=== PATIENT | female | born 1965 ===

== ENCOUNTER 2024-09-27 09:00 | Inpatient (IN) | payer OTHER ==
[~2024-09-27] VITALS: Ht 167.6 cm; Wt 124.7 kg
[2024-09-27 10:53] LABS: BASO % 0.8 % (0.1-1.2); EOS # 0.18 (0.04-0.54); EOS % 2.3 % (0.7-7.0); LYMPH # 2.49 (1.18-3.74); LYMPH % 32.3 % (19.3-53.1); MEAN PLATELET VOLUME 11.50 fl (9.4-12.4); MONO # 0.37 (0.24-0.82); MONO % 4.8 % (4.7-12.5); NEUT # 4.60 (1.56-6.13); NEUT % 59.7 % (34.0-71.1); RED CELL DISTRIBUTION WIDTH 13.6 % (11.6-14.4)
[2024-09-27 11:00] LABS: URINE APPEARANCE Clear; URINE BILIRRUBIN Negative (NEGATIVE); URINE BLOOD Negative; URINE COLOR Yellow; URINE GLUCOSE Negative (NEGATIVE); URINE KETONE Negative (NEGATIVE); URINE LEUKOCYTE Negative; URINE NITRATE Negative; URINE PROTEIN Negative (NEGATIVE); URINE UROBILINOGEN 0.2 E.U./dl
[2024-09-27 11:05] LABS: URINE BACTERIA 49.1 uL (0.0-1933); URINE EPITHELIAL CELLS 5.3 uL (0.0-38.8); URINE RBC 9.5 uL (0.0-20.8); URINE WBC 3.9 uL (0.0-23.2)
[2024-09-27 11:14] LABS: ALT/SGPT 24.0 U/L (12-78); AST/SGOT 12.0 U/L (15-37); BILIRUBIN TOTAL 0.53 mg/dL (0.3-1.2); BUN CREA RATIO 16.0 (7.0-25.0); CREATININE SERUM 1.01 mg/dL (0.55-1.02); GFR 56.3; GLOBULINA 4.0 G/DL (2.4-3.5); GLUCOSE FASTING 95.0 mg/dL (65-100); OSMOLALITY SERUM 286.0 MOSM/KG (275-295)
[2024-09-27 11:20] LABS: COVID-19 AG NEGATIVE (NEGATIVE)
[2024-09-27 11:22] LABS: INR 0.97
[2024-09-27 11:27] LABS: URINE CAST 0.00 uL (0.0-1.40)
[2024-09-27 11:30] LABS: RH POSITIVE
[2024-09-27 11:39] VITALS: BP 105/63
[2024-09-27] MEDS ORDERED: SIMVASTATIN (11:45)
[2024-09-27] MEDS ORDERED: MEDROL (11:45)
[2024-09-27] MEDS ORDERED: XOPENEX HFA15 GM (11:45)
[2024-09-27] MEDS ORDERED: [UNRECOGNIZED DRUG - OTHER] (11:46)
[2024-09-27] MEDS ORDERED: MOTRIN (11:46)
[2024-10-04] MEDS ORDERED: LEVALBUTEROL TA15 GM (14:02)
[2024-10-04] MEDS ORDERED: MOTRIN IB200 MG (14:03)
[2024-10-04] MEDS ORDERED: MEDROL2 MG (14:03)
[2024-10-04] MEDS ORDERED: DEXAMETHAS0.5 MG/5 M (14:04)
[2024-10-04] MEDS ORDERED: SIMVASTATIN5 MG (14:04)
[2024-10-04] MEDS ORDERED: RINGERS SOLUTION,LACTATED 1,000 ML IV SCH (17:30)
[2024-10-04] MEDS ORDERED: OxyCODONE HCL 5 MG TABLET (ROXICODONE) PO PRN (17:30)
[2024-10-04] MEDS ORDERED: MORPHINE SULFATE 4 MG/ML CARTRIDGE IV PRN (17:30)
[2024-10-04] MEDS ORDERED: KETOROLAC TROMETHAMINE 30 MG VIAL IV NR (17:35)
[2024-10-04] MEDS ORDERED: ACETAMINOPHEN 500 MG GEL..CAP PO SCH (18:00)
[2024-10-04 20:16] LABS: BASO % 0.3 % (0.1-1.2); EOS # 0.06 (0.04-0.54); EOS % 0.6 % (0.7-7.0); LYMPH # 1.30 (1.18-3.74); LYMPH % 13.2 % (19.3-53.1); MEAN PLATELET VOLUME 10.90 fl (9.4-12.4); MONO # 0.29 (0.24-0.82); MONO % 3.0 % (4.7-12.5); NEUT # 8.11 (1.56-6.13); NEUT % 82.6 % (34.0-71.1); RED CELL DISTRIBUTION WIDTH 13.4 % (11.6-14.4)
[2024-10-04 20:43] LABS: BUN CREA RATIO 12.0 (7.0-25.0); CREATININE SERUM 0.92 mg/dL (0.55-1.02); GFR 62.7; GLUCOSE FASTING 123.0 mg/dL (65-100); OSMOLALITY SERUM 282.0 MOSM/KG (275-295)
[2024-10-04] MEDS ORDERED: MORPHINE SULFATE 4 MG/ML VIAL IV ONE (20:50)
[2024-10-04] MEDS ORDERED: SIMETHICONE 125 MG CAPSULE PO SCH (21:00)
[2024-10-04] MEDS ORDERED: GABAPENTIN 300 MG CAPSULE PO SCH (21:00)
[2024-10-04] MEDS ORDERED: METRONIDAZOLE/SODIUM CHLORIDE 500 MG/100 ML PIGGYBACK IV ONE (21:00)
[2024-10-04] MEDS ORDERED: CEFAZOLIN SODIUM 1,000 MG VIAL IV ONE (21:00)
[2024-10-04] MEDS ORDERED: DOCUSATE SODIUM 100MG CAP PO SCH (21:00)
[2024-10-04] MEDS ORDERED: CELECOXIB 200 MG CAPSULE PO SCH (21:00)
[2024-10-04] MEDS ORDERED: FAMOTIDINE/PF 20 MG/2 ML VIAL IV PUSH SCH (21:00)
[2024-10-04] MEDS ORDERED: SUGAMMADEX SODIUM 200 MG/2 ML VIAL IV ONE (21:15)
[2024-10-04 22:28] VITALS: BP 127/82
[2024-10-05] MEDS ORDERED: METOCLOPRAMIDE HCL 5 MG/ML VIAL IV SCH (01:00)
[2024-10-05] MEDS ORDERED: CEFAZOLIN SODIUM 1,000 MG VIAL IV SCH (01:00)
[2024-10-05 01:14] VITALS: BP 133/79; O2SAT 98
[2024-10-05 07:57] LABS: BASO % 0.3 % (0.1-1.2); EOS # 0.12 (0.04-0.54); EOS % 1.4 % (0.7-7.0); LYMPH # 1.95 (1.18-3.74); LYMPH % 22.2 % (19.3-53.1); MEAN PLATELET VOLUME 11.10 fl (9.4-12.4); MONO # 0.36 (0.24-0.82); MONO % 4.1 % (4.7-12.5); NEUT # 6.30 (1.56-6.13); NEUT % 71.9 % (34.0-71.1); RED CELL DISTRIBUTION WIDTH 13.3 % (11.6-14.4)
[2024-10-05 08:30] VITALS: BP 93/57
[2024-10-05 08:32] LABS: BUN CREA RATIO 9.0 (7.0-25.0); CREATININE SERUM 0.91 mg/dL (0.55-1.02); GFR 63.49; GLUCOSE FASTING 85.0 mg/dL (65-100); OSMOLALITY SERUM 281.0 MOSM/KG (275-295)
[2024-10-05] MEDS ORDERED: ENOXAPARIN SODIUM 40 MG/0.4 ML SYRINGE SUBCUTANEO SCH (09:00)
== END 2024-10-05 11:22 | disposition home or self-care (01) | DRG 743 ==
LOC: OB/GYN 10-04 07:00 → O/R 10-04 07:00 → SURH 10-04 07:00 → OB/GYN 10-04 18:27
PROVIDERS: Obstetrics & Gynecology; ADMIT Obstetrics & Gynecology Gynecologic Oncology; ATTEND Obstetrics & Gynecology Gynecologic Oncology
PROC: 0UT74ZZ Resection of Bilateral Fallopian Tubes, Percutaneous Endoscopic Approach (ICD-10-PCS; 2024-10-04)
PROC: 0UT24ZZ Resection of Bilateral Ovaries, Percutaneous Endoscopic Approach (ICD-10-PCS; 2024-10-04)
PROC: 07BC4ZZ Excision of Pelvis Lymphatic, Percutaneous Endoscopic Approach (ICD-10-PCS; 2024-10-04)
PROC: 0DNU4ZZ Release Omentum, Percutaneous Endoscopic Approach (ICD-10-PCS; 2024-10-04)
PROC: 0TNB4ZZ Release Bladder, Percutaneous Endoscopic Approach (ICD-10-PCS; 2024-10-04)
PROC: 0DNW4ZZ Release Peritoneum, Percutaneous Endoscopic Approach (ICD-10-PCS; 2024-10-04)
PROC: 8E0W4CZ Robotic Assisted Procedure of Trunk Region, Percutaneous Endoscopic Approach (ICD-10-PCS; 2024-10-04)
PROC: 0UT94ZZ Resection of Uterus, Percutaneous Endoscopic Approach (ICD-10-PCS; principal; 2024-10-04 07:00)
DX: D25.9 Leiomyoma of uterus, unspecified (principal); D36.0 Benign neoplasm of lymph nodes; N80.03 Adenomyosis of the uterus
CPT/HCPCS: 58548; 44180; S2900